=== PATIENT | male | born 1985 | race Caucasian/White ===

== ENCOUNTER → 2018-01-15 09:19 | Outpatient (CLI) | payer OTHER, SELFPAY | PROVIDERS: Visit Provider Physician Assistant | DX: J02.9 Acute pharyngitis, unspecified (principal) | CPT/HCPCS: 87070 ==

== ENCOUNTER → 2018-01-17 13:25 | Outpatient (CLI) | payer OTHER, SELFPAY ==
[2018-01-17 13:46] LABS: Add Manual Diff / Slide Review NO; Basophils Percent Auto 0.5 % (0-2); Eosinophils Percent Auto 0.8 % (2-4); Hematocrit 43.1 % (41-53); Hemoglobin 14.8 g/dL (13.5-17.5); Lymphocytes Percent Auto 9.9 % (25-40); Mean Corpuscular HGB Conc 34.4 % (30-36); Mean Corpuscular Hemoglobin 31.6 PG (26-34); Mean Corpuscular Volume 91.9 fL (80-100); Monocytes Percent Auto 5.4 % (3-14); Neutrophils Absolute Auto 10400 /uL (3000-5900); Neutrophils Percent Auto 83.4 % (50-75); Platelet Count 311 X10^3/uL (150-400); Red Blood Cell Count 4.69 X10^6/uL (4.5-5.9); Red Cell Distribution Width 13.2 % (11.6-14.8); White Blood Cell Count 12.4 X10^3/uL (4.5-11.0)
[2018-01-17 13:52] LABS: Monotest Negative (Negative)
== END ==
PROVIDERS: Visit Provider Physician Assistant
DX: J02.9 Acute pharyngitis, unspecified (principal)
CPT/HCPCS: 36415; 85025; 86318

== ENCOUNTER → 2020-11-19 13:53 | Outpatient (CLI) | payer OTHER, SELFPAY ==
--- NOTE | 2020-11-19 13:56 | DI.RAD.S_ITS ---
PROCEDURE: XR SHOULDER RT MIN 2V INDICATIONS: chronic right shoulder pain TECHNIQUE: 3 views of the shoulder were acquired. COMPARISON: None. FINDINGS: Bones: No fractures or dislocations. No suspicious bony lesions. Visualized ribs appear intact. Soft tissues: No suspicious soft tissue calcifications. IMPRESSION: No acute abnormality. Dictated by: Chavez Haro M.D. on 11/19/2020 at 14:13 Approved by: Chavez Haro M.D. on 11/19/2020 at 14:14
== END ==
PROVIDERS: PCP Family Medicine; Referring Provider Family Medicine; Visit Provider Family Medicine
DX: M25.511 Pain in right shoulder (principal); S43.401A Unspecified sprain of right shoulder joint, initial encounter
CPT/HCPCS: 73030

== ENCOUNTER 2021-10-21 09:28 | Emergency (ER) | payer BC, SELFPAY ==
[2021-10-21] VITALS (11 sets, daily range): BP systolic 123–147; BP diastolic 79–95; PULSE 58–72; RESP 20; TEMP 36.3; O2SAT 96–100; BMI 27.8
--- NOTE | 2021-10-21 10:06 | ED_ITS ---
HPI - URI/Sore Throat General Chief Complaint: Upper Respiratory Symptoms Stated Complaint: COVID+ concerned about oxygen Time Seen by Provider: 10/21/21 10:06 History of Present Illness HPI Narrative: Patient is a 36-year-old healthy male who presents with known COVID and concern for low temperature. He states he was diagnosed with COVID in a home test 4 days ago. has been monitoring oxygen level and temperature very carefully and writing it down. This morning they took his temperature and that was 95 and came into the emergency department. On further questioning he states that he does have some epigastric pain and periumbilical pain he has had that for last 4 days. She does nice any nausea or vomiting. He denies any chest pain no shortness of breath no sore throat. He actually is feeling better for most of his COVID symptoms. He also has left testicular pain. He says that he has had varicocele surgery 12 years ago he feels like his varicocele is back. He denies any testicle swelling or redness. Related Data Allergies Allergy/AdvReac Type Severity Reaction Status Date / Time No Known Drug Allergies Allergy Verified 01/15/18 09:15 Review of Systems Review of Systems Narrative: GENERAL: Denies chills, fatigue, malaise, fever, sweats, travel HEENT: Denies sinus pain, ear pain, sore throat, difficulty swallowing, neck pain RESPIRATORY: Denies dyspnea, cough, wheezing, hemoptysis, sputum. CARDIOVASCULAR: Denies chest pain, palpitations, orthopnea, edema GASTROINTESTINAL: See HPI : See HPI MUSCULOSKELETAL: Denies weakness, joint pain, or bony pain SKIN: No rash, no erythema, no pruritus NEUROLOGIC: Denies weakness, dizziness, headache, numbness, change in speech, confusion PSYCHIATRIC: No concerning psychosocial issues. 12 point review of systems is negative except for those stated above and HPI Patient History Medical History History of skin disorder (~2000) Surgical History Anesthesia Status post scrotal varicocelectomy (~2010) Family History Father Liver disease Mother History of hysterectomy Social History (Reviewed 10/21/21 @ 10:21 by JULIA Garnica Smoking Status: Never smoker Smoking Status: Never smoker Exam Initial Vital Signs Initial Vital Signs: Vital Signs Pulse Oximetry 100 10/21/21 09:38 GENERAL: Well-appearing, well-nourished and in no acute distress. HEENT: Head atraumatic,EOMI, pupils reactive, face symmetric, moist mucous membranes CARDIOVASCULAR: Regular rate and rhythm without murmurs, rubs or gallops. RESPIRATORY: Breath sounds equal bilaterally, no wheezes rales or rhonchi. ABDOMEN: Soft, tender epigastric area minimal right upper quadrant pain mild periumbilical pain no guarding no rebound : Nurse Lizette present, patient feels like there is a vein I do not feel or see in course pain on the left testicle. There is no actual testicular pain and no right testicular pain no redness. There is no hernia. EXTREMITIES: Normal range of motion, no clubbing or edema. Neurovascularly intact NEUROLOGICAL: Alert and oriented x4. SKIN: Warm, dry, no laceration, no petechiae, no rashes or lesions. Course Orders Ordered: ED Orders 10/21/21 10:17 US abdomen limited Stat US scrotum Stat 10/21/21 11:06 CBC Auto Diff [Complete Blood Count AUTO DIFF] Stat CMP [Comprehensive Metabolic Panel] Stat Lipase Stat Discontinued Medications Ketorolac Tromethamine (Ketorolac 30 Mg/Ml Vial) 15 mg IV NOW ONE Stop: 10/21/21 10:18 Last Admin: 10/21/21 11:11 Dose: 15 mg Documented By: CTS Vital Signs Vital signs: Vital Signs - 8 hr 10/21/21 11:00 10/21/21 11:01 10/21/21 11:01 Pulse Rate 72 71 Blood Pressure 136/79 Pulse Oximetry 97 97 Oxygen Delivery Method 10/21/21 11:30 10/21/21 12:00 10/21/21 12:30 Pulse Rate 63 61 58 L Blood Pressure Pulse Oximetry 97 97 98 Oxygen Delivery Method Room Air Room Air Room Air 10/21/21 12:35 10/21/21 12:35 Pulse Rate 68 Blood Pressure 132/89 Pulse Oximetry 99 Oxygen Delivery Method Room Air MDM - URI/Sore Throat Lab Data Result diagrams: 10/21/21 11:06 10/21/21 11:06 Labs: Lab Results 10/21/21 10/21/21 Range/Units 11:06 11:06 WBC 3.9 L (4.5-11.0) X10^3/uL RBC 4.81 (4.5-5.9) X10^6/uL Hgb 15.1 (13.5-17.5) g/dL Hct 43.9 (41-53) % MCV 91.2 (80-100) fL MCH 31.5 (26-34) PG MCHC 34.5 (30-36) % RDW 12.9 (11.6-14.8) % Plt Count 161 (150-400) X10^3/uL Neut % (Auto) 52.7 (50-75) % Lymph % (Auto) 29.2 (25-40) % [place] % (Auto) 14.3 H (3-14) % Eos % (Auto) 3.3 (2-4) % Baso % (Auto) 0.5 (0-2) % Neut # (Auto) 2000 (3121-7502) /uL Lymph # (Auto) 1100 (6965-6329) /uL [place] # (Auto) 600 (0-900) /uL Eos # (Auto) 100 (0-450) /uL Baso # (Auto) 0 (0-100) /uL Sodium 139 (137-145) mmol/L Potassium 4.2 (3.4-5.1) mmol/L Chloride 100 (98-107) mmol/L Carbon Dioxide 29 (22-32) mmol/L BUN 9 (9-20) mg/dL Creatinine 1.07 (0.66-1.25) mg/dL Estimated GFR > 60 (>60) mL/min BUN/Creatinine Ratio 8.4 (6-22) Glucose 92 (70-100) mg/dL Calcium 8.7 (8.4-10.2) mg/dL Total Bilirubin 0.4 (0.2-1.3) mg/dL AST 28 (17-59) IU/L ALT 20 (<50) IU/L Alkaline Phosphatase 59 (38-126) U/L Total Protein 7.7 (6.3-8.2) g/dL Albumin 4.2 (3.5-5.0) g/dL Globulin 3.5 (1.7-4.1) g/dL Albumin/Globulin Ratio 1.2 (1.0-2.8) Lipase 105 (23-300) U/L Imaging Data US - abdomen: Radiologist's Impression: Joshua Copeland MR#: [id number] : 1985 Acct:[id number] Age/Sex: 36 / M Date of Service: 10/21/21 Loc: ED Accession Number: [id number] ?? Procedure: US abdomen limited Ordering Provider: Clarice Shah D.O. PROCEDURE: US ABDOMEN LIMITED ? INDICATIONS:? ruq ? TECHNIQUE:? Real-time focused scanning was performed of the abdomen, with image documentation.? ? COMPARISON:? None. ? FINDINGS:? Liver is normal in size measuring 15.3 cm.? No focal lesions.? No stones are present within the gallbladder.? Wall thickness is normal measuring 1.5 mm.? Common bile duct measures 3.6 mm.? Visualized portions of the pancreas are within normal ? IMPRESSION:? Unremarkable exam. ? ? Dictated by: Lona Odom M.D. on 10/21/2021 at 11:36 ? ? US scrotum: Radiologist's Impression: Signed Patient: Joshua Copeland MR#: [id number] : 1985 Acct:[id number] Age/Sex: 36 / M Date of Service: 10/21/21 Loc: ED Accession Number: [id number] ?? Procedure: US scrotum Ordering Provider: Clarice Shah D.O. PROCEDURE:? US SCROTUM ? INDICATIONS:? left testicle pain ? TECHNIQUE:? Real-time scanning was performed of the scrotum and testicles, with image documentation.? Color and pulse Doppler interrogation was performed of both testicles.? ? COMPARISON:? None. ? FINDINGS:? ? Right:? Testicle is normal in size at 4.3 x 2.0 x 2.4 cm, and homogenous in echotexture.? Epididymis is normal in overall size and morphology.? Small epididymal cyst is present measuring 3 x 3 x 4 mm. No hydrocele.? Mildly prominent vessels are noted.? Overlying scrotal skin is normal in thickness.? ? Left:? Testicle is normal in size at 4.6 x 2.1 x 2.4 cm, and homogeneous in echotexture.? Epididymis is normal in overall size and morphology.? Epididymal cyst is present measuring 3 x 1 x 1 mm. No hydrocele or varicoceles.? Overlying scrotal skin is normal in thickness.? ? Doppler:? Color and pulse Doppler demonstrate normal and symmetric arterial flow in both testicles.? ? IMPRESSION:? Bilateral epididymal cysts. ? Questionable small left varicocele.? ? ? Dictated by: Lona Odom M.D. on 10/21/2021 at 11:38 ? ? MDM Narrative Medical decision making narrative: The patient overall appears well. He does have some epigastric pain some minimal right upper quadrant pain. Initially discussed blood work versus going home may be related to COVID. Initially he would like to go home. However he then reports that he has been having some left testicular pain. He says 12 years ago he had a varicocele and surgery, and now he feels like the same thing his back. He really does not have any testicular pain but feels like the vein is back is mildly tender. He can not get a PCP appointment for the next 40 days. At this time like blood work no will do an ultrasound. Blood work is overall reassuring ultrasounds are both negative. Abdominal pain is likely from COVID. He may small varicocele on the left which he can follow up with primary care provider. Discharge Plan Departure Patient Disposition: Home Clinical Impression: COVID-19, Left varicocele Instructions: COVID-19 Activity Restrictions/Additional Instructions: *You have been diagnosed with COVID-19, left varicocele *What to do: At this time continue supportive care for COVID-19. Mask if you go out follow CDC guidelines Up please see her PCP in regards to her left varicocele *Continue to take medications as directed *Follow up with your primary care provider in 2-3 days or call [phone] *Return to ER if you should have oxygen less than 90%, worsening pain swelling persistent vomiting or or any new, worsening or concerning symptoms Referrals: Hitesh Arceo MD [Primary Care Provider] - Visit Report Forms: Patient Portal/API
--- NOTE | 2021-10-21 10:17 | DI.US.S_ITS ---
PROCEDURE: US SCROTUM INDICATIONS: left testicle pain TECHNIQUE: Real-time scanning was performed of the scrotum and testicles, with image documentation. Color and pulse Doppler interrogation was performed of both testicles. COMPARISON: None. FINDINGS: Right: Testicle is normal in size at 4.3 x 2.0 x 2.4 cm, and homogenous in echotexture. Epididymis is normal in overall size and morphology. Small epididymal cyst is present measuring 3 x 3 x 4 mm. No hydrocele. Mildly prominent vessels are noted. Overlying scrotal skin is normal in thickness. Left: Testicle is normal in size at 4.6 x 2.1 x 2.4 cm, and homogeneous in echotexture. Epididymis is normal in overall size and morphology. Epididymal cyst is present measuring 3 x 1 x 1 mm. No hydrocele or varicoceles. Overlying scrotal skin is normal in thickness. Doppler: Color and pulse Doppler demonstrate normal and symmetric arterial flow in both testicles. IMPRESSION: Bilateral epididymal cysts. Questionable small left varicocele. Dictated by: Lona Odom M.D. on 10/21/2021 at 11:38 Approved by: Lona Odom M.D. on 10/21/2021 at 11:41
--- NOTE | 2021-10-21 10:17 | DI.US.S_ITS ---
PROCEDURE: US ABDOMEN LIMITED INDICATIONS: ruq TECHNIQUE: Real-time focused scanning was performed of the abdomen, with image documentation. COMPARISON: None. FINDINGS: Liver is normal in size measuring 15.3 cm. No focal lesions. No stones are present within the gallbladder. Wall thickness is normal measuring 1.5 mm. Common bile duct measures 3.6 mm. Visualized portions of the pancreas are within normal IMPRESSION: Unremarkable exam. Dictated by: Lona Odom M.D. on 10/21/2021 at 11:36 Approved by: Lona Odom M.D. on 10/21/2021 at 11:38
[2021-10-21] MEDS: KETOROLAC 30 MG/ML VIAL 15 MG IV (11:11)
[2021-10-21 11:17] LABS: Add Manual Diff / Slide Review NO; Basophils Absolute Auto 0 /uL (0-100); Basophils Percent Auto 0.5 % (0-2); Eosinophils Absolute Auto 100 /uL (0-450); Eosinophils Percent Auto 3.3 % (2-4); Hematocrit 43.9 % (41-53); Hemoglobin 15.1 g/dL (13.5-17.5); Lymphocytes Absolute Auto 1100 /uL (1100-4500); Lymphocytes Percent Auto 29.2 % (25-40); Mean Corpuscular HGB Conc 34.5 % (30-36); Mean Corpuscular Hemoglobin 31.5 PG (26-34); Mean Corpuscular Volume 91.2 fL (80-100); Monocytes Absolute Auto 600 /uL (0-900); Monocytes Percent Auto 14.3 % (3-14); Neutrophils Absolute Auto 2000 /uL (1500-7000); Neutrophils Percent Auto 52.7 % (50-75); Platelet Count 161 X10^3/uL (150-400); Red Blood Cell Count 4.81 X10^6/uL (4.5-5.9); Red Cell Distribution Width 12.9 % (11.6-14.8); White Blood Cell Count 3.9 X10^3/uL (4.5-11.0)
[2021-10-21 11:32] LABS: Alanine Aminotransferase 20 IU/L (<50); Albumin 4.2 g/dL (3.5-5.0); Albumin Globulin Ratio 1.2 (1.0-2.8); Alkaline Phosphatase 59 U/L (38-126); Aspartate Aminotransferase 28 IU/L (17-59); BUN Creatinine Ratio 8.4 (6-22); Bilirubin Total 0.4 mg/dL (0.2-1.3); Blood Urea Nitrogen 9 mg/dL (9-20); Calcium 8.7 mg/dL (8.4-10.2); Carbon Dioxide 29 mmol/L (22-32); Chloride 100 mmol/L (98-107); Estimated Glomerular Filt Rate > 60 mL/min (>60); Globulin 3.5 g/dL (1.7-4.1); Glucose 92 mg/dL (70-100); HEMOLYSIS < 15 (0-50); Lipase 105 U/L (23-300); Potassium 4.2 mmol/L (3.4-5.1); Sodium 139 mmol/L (137-145); Total Protein 7.7 g/dL (6.3-8.2)
== END 2021-10-21 12:39 | disposition home or self-care (01) ==
PROVIDERS: Emergency Provider Emergency Medicine; PCP Family Medicine
DX: U07.1 COVID-19 (principal); I86.1 Scrotal varices; R10.13 Epigastric pain
CPT/HCPCS: 36415; 76705; 76870; 80053; 83690; 85025; 93975; 96374; 99284; J1885

== ENCOUNTER 2022-04-24 20:47 | Emergency (ER) | payer BC, SELFPAY ==
[2022-04-24 21:11] VITALS: BP 118/76; PULSE 107; RESP 16; TEMP 37.5; O2SAT 95; BMI 27.1
--- NOTE | 2022-04-24 21:18 | DI.RAD.S_ITS ---
PROCEDURE: XR CHEST 1V INDICATIONS: suspected sepsis TECHNIQUE: One view of the chest was acquired. COMPARISON: None. FINDINGS: Surgical changes and devices: None. Lungs and pleura: Lungs are clear. No pleural effusions or pneumothorax. Mediastinum: Mediastinal contours appear normal. Heart size is normal. Bones and chest wall: No suspicious bony lesions. Overlying soft tissues appear unremarkable. IMPRESSION: 1. No acute cardiopulmonary disease. Dictated by: Tom Yeh M.D. on 04/24/2022 at 22:16 Approved by: Tom Yeh M.D. on 04/24/2022 at 22:16
[2022-04-24] MEDS: SODIUM CHLORIDE 0.9% 1,000 ML 1000 ML IV (21:42)
[2022-04-24] MEDS: ONDANSETRON 4 MG/2 ML INJ IV (21:43)
[2022-04-24 21:44] LABS: Add Manual Diff / Slide Review NO; Basophils Absolute Auto 0 /uL (0-100); Basophils Percent Auto 0.1 % (0-2); Eosinophils Absolute Auto 0 /uL (0-450); Eosinophils Percent Auto 0.2 % (2-4); Hematocrit 45.5 % (41-53); Hemoglobin 15.6 g/dL (13.5-17.5); Lymphocytes Absolute Auto 400 /uL (1100-4500); Lymphocytes Percent Auto 4.1 % (25-40); Mean Corpuscular HGB Conc 34.3 % (30-36); Mean Corpuscular Hemoglobin 30.9 PG (26-34); Mean Corpuscular Volume 90.2 fL (80-100); Monocytes Absolute Auto 500 /uL (0-900); Monocytes Percent Auto 4.6 % (3-14); Neutrophils Absolute Auto 8900 /uL (1500-7000); Platelet Count 217 X10^3/uL (150-400); Red Blood Cell Count 5.05 X10^6/uL (4.5-5.9); White Blood Cell Count 9.8 X10^3/uL (4.5-11.0)
[2022-04-24 21:49] LABS: INR 1.2 (0.9-1.3); Prothrombin Time 13.3 SECONDS (10.1-12.7)
[2022-04-24 21:52] LABS: PTT Partial Thromboplastin Tim 30 SECONDS (26-36)
[2022-04-24 21:55] LABS: Alanine Aminotransferase 41 IU/L (<50); Albumin 4.7 g/dL (3.5-5.0); Albumin Globulin Ratio 1.4 (1.0-2.8); Alkaline Phosphatase 52 U/L (38-126); Aspartate Aminotransferase 35 IU/L (17-59); BUN Creatinine Ratio 12.9 (6-22); Bilirubin Total 0.9 mg/dL (0.2-1.3); Blood Urea Nitrogen 12 mg/dL (9-20); Calcium 8.5 mg/dL (8.4-10.2); Carbon Dioxide 23 mmol/L (22-32); Chloride 99 mmol/L (98-107); Estimated Glomerular Filt Rate > 60 mL/min (>60); Globulin 3.4 g/dL (1.7-4.1); Glucose 130 mg/dL (70-100); HEMOLYSIS < 15 (0-50); Lactate (Lactic Acid) 1.4 mmol/L (0.7-2.1); Lipase 56 U/L (23-300); Potassium 3.5 mmol/L (3.4-5.1); Sodium 135 mmol/L (137-145); Total Protein 8.1 g/dL (6.3-8.2)
[2022-04-24 22:11] LABS: Procalcitonin 0.84 ng/mL (<0.5)
[2022-04-24 22:59] VITALS: BP 117/73; PULSE 93; RESP 16; TEMP 37.3; O2SAT 95
--- NOTE | 2022-04-24 23:11 | ED.NAVMDI ---
HPI - Nausea/Vomiting/Diarrhea General Chief complaint: Nausea/Vomiting/Diarrhea Stated complaint: food poisoning/dehydrated Time Seen by Provider: 04/24/22 20:53 Source: patient Mode of arrival: Ambulatory History of Present Illness HPI Narrative: 36-year-old male nonsmoker with noncontributory medical history presents with a chief complaint of 24 hours of persistent nausea vomiting and diarrhea. He states that he is developed abdominal cramping that seemed to build which rapidly goes away when he has a bowel movement only to return shortly thereafter and follow this pattern. He is developed a moderate headache without obvious provocation or palliation. He denies any fever but has had some chills. He denies any neck pain or extremity numbness, tingling or weakness. He has no blurred vision or trouble with speech. He denies any recent travel, use of antibiotics or exposure to other ill persons. It is unclear if he ate any obviously bad food. He denies runny nose, sore throat or cough. Related Data Previous Rx's Medication Instructions Recorded ondansetron 4 mg disintegrating 4 mg PO TID-QID PRN nausea and 04/25/22 tablet vomiting #10 tabs pantoprazole 40 mg tablet,delayed 40 mg PO DAILY #30 tabs 04/25/22 release (Protonix) Allergies Allergy/AdvReac Type Severity Reaction Status Date / Time No Known Drug Allergies Allergy Verified 01/15/18 09:15 Review of Systems Review of Systems Narrative: GENERAL: See HPI HEENT: Denies sinus pain, ear pain, sore throat, difficulty swallowing, dizziness. RESPIRATORY: Denies dyspnea, cough, wheezing, hemoptysis, sputum. CARDIOVASCULAR: Denies chest pain, palpitations, orthopnea, edema, GASTROINTESTINAL: See HPI : Denies dysuria, frequency, incontinence, hematuria, urinary retention. MUSCULOSKELETAL: denies weakness, joint pain, or bony pain SKIN: Denies rash, skin lesions, or other NEUROLOGIC: See HPI PSYCHIATRIC: No concerning psychosocial issues. 12 point review of systems is negative except for those stated above Patient History Medical History History of skin disorder (~2000) Hyperlipemia Varicocele Surgical History Anesthesia Status post scrotal varicocelectomy (~2010) Family History Father Liver disease Mother History of hysterectomy Social History Smoking Status: Never smoker Smoking Status: Never smoker Substance Use Type: does not use Exam Narrative Exam Narrative: GENERAL: [36] year old patient appears stated age. Well-developed patient, in mild distress. Obviously uncomfortable, holding an emesis bag HEAD: Atraumatic. Normocephalic. EYES: Pupils equal round and reactive. Extraocular motions intact. No scleral icterus. No injection or drainage. ENT: Nose without bleeding, purulent drainage. Throat without erythema, tonsillar hypertrophy or exudate. Airway patent. NECK: Trachea midline. Non tender CARDIOVASCULAR: Tachycardic but regular rhythm without murmurs, gallops, or rubs. RESPIRATORY: Clear to auscultation. Breath sounds equal bilaterally. No wheezes, rales, or rhonchi. GASTROINTESTINAL: Abdomen soft, non-tender, nondistended. Increased bowel sounds EXTREMITIES: No edema or joint tenderness. BACK: Nontender without deformity or crepitance. No flank tenderness. NEURO: AOx3. SKIN: No rash or erythema of visible areas Initial Vital Signs Initial Vital Signs: Vital Signs Temperature 99.5 F 04/24/22 21:11 Pulse Rate 107 H 04/24/22 21:11 Respiratory Rate 16 04/24/22 21:11 Blood Pressure 118/76 04/24/22 21:11 Pulse Oximetry 95 04/24/22 21:11 Oxygen Delivery Method Room Air 04/24/22 21:11 Course Orders Ordered: Discontinued Medications Sodium Chloride (Normal Saline 0.9%) 1,000 mls @ 1,000 mls/hr IV BOLUS ONE Stop: 04/24/22 22:17 Last Infusion: 04/24/22 22:44 Dose: 0 mls/hr Documented By: Admin: 04/24/22 21:42 Dose: 1,000 mls/hr Documented By: GABRIELLE Lactated Ringer's (Lactated Ringers) 1,000 mls @ 1,000 mls/hr IV BOLUS ONE Stop: 04/25/22 00:19 Last Infusion: 04/25/22 00:26 Dose: 0 mls/hr Documented By: Admin: 04/24/22 23:29 Dose: 1,000 mls/hr Documented By: GABRIELLE Ondansetron HCl (Ondansetron 4 Mg Odt) 4 mg SL NOW PRN PRN Reason: Nausea And Vomiting Ondansetron HCl (Ondansetron 4 Mg/2 Ml Inj) 4 mg IV NOW PRN PRN Reason: Nausea And Vomiting Last Admin: 04/24/22 21:43 Dose: 4 mg Documented By: GABRIELLE Ondansetron HCl (Ondansetron 4 Mg Odt Prepack) 1 bottle MISC SEEINSTR ONE Stop: 04/25/22 00:47 Last Admin: 04/25/22 01:01 Dose: 1 bottle Documented By: GABRIELLE Pantoprazole Sodium (Pantoprazole 40 Mg Vial) 40 mg IV NOW ONE Stop: 04/24/22 23:21 Last Admin: 04/24/22 23:30 Dose: 40 mg Documented By: GABRIELLE Vital Signs Vital signs: Vital Signs - 8 hr 04/24/22 21:11 04/24/22 22:59 Temperature 99.5 F 99.1 F Pulse Rate 107 H 93 H Respiratory Rate 16 16 Blood Pressure 118/76 117/73 Pulse Oximetry 95 95 Oxygen Delivery Method Room Air Room Air MDM - Nausea/Vomiting/Diarrhea Lab Data 04/24/22 21:30 04/24/22 21:30 Labs: Lab Results 04/24/22 04/24/22 04/24/22 Range/Units 21:30 21:30 21:30 WBC 9.8 (4.5-11.0) X10^3/uL RBC 5.05 (4.5-5.9) X10^6/uL Hgb 15.6 (13.5-17.5) g/dL Hct 45.5 (41-53) % MCV 90.2 (80-100) fL MCH 30.9 (26-34) PG MCHC 34.3 (30-36) % RDW 13.0 (11.6-14.8) % Plt Count 217 (150-400) X10^3/uL Neut % (Auto) 91.0 H (50-75) % Lymph % (Auto) 4.1 L (25-40) % [place] % (Auto) 4.6 (3-14) % Eos % (Auto) 0.2 L (2-4) % Baso % (Auto) 0.1 (0-2) % Neut # (Auto) 8900 H (8627-2381) /uL Lymph # (Auto) 400 L (3725-3515) /uL [place] # (Auto) 500 (0-900) /uL Eos # (Auto) 0 (0-450) /uL Baso # (Auto) 0 (0-100) /uL PT 13.3 H (10.1-12.7) SECONDS INR 1.2 (0.9-1.3) APTT 30 (26-36) SECONDS Sodium 135 L (137-145) mmol/L Potassium 3.5 (3.4-5.1) mmol/L Chloride 99 (98-107) mmol/L Carbon Dioxide 23 (22-32) mmol/L BUN 12 (9-20) mg/dL Creatinine 0.93 (0.66-1.25) mg/dL Estimated GFR > 60 (>60) mL/min BUN/Creatinine Ratio 12.9 (6-22) Glucose 130 H (70-100) mg/dL Lactate (0.7-2.1) mmol/L Calcium 8.5 (8.4-10.2) mg/dL Total Bilirubin 0.9 (0.2-1.3) mg/dL AST 35 (17-59) IU/L ALT 41 (<50) IU/L Alkaline Phosphatase 52 (38-126) U/L Total Protein 8.1 (6.3-8.2) g/dL Albumin 4.7 (3.5-5.0) g/dL Globulin 3.4 (1.7-4.1) g/dL Albumin/Globulin Ratio 1.4 (1.0-2.8) Lipase 56 (23-300) U/L Procalcitonin 0.84 H (<0.5) ng/mL Stl C. cayetanensis PCR (Not Detect) Stool Rotavirus (PCR) (Not Detect) Stool Adenovirus (PCR) (Not Detect) Stool Astrovirus (PCR) (Not Detect) Stool Cryptosporidium PCR (Not Detect) Stl E.coli Shiga Tox PCR (Not Detect) St Sh/Enteroin Ecoli PCR (Not Detect) Stool E coli O157 PCR (Not Detect) Stl Enterotoxigenic E PCR (Not Detect) Stool EPEC (PCR) (Not Detect) Stl E. histolytica PCR (Not Detect) Stool Giardia Lamblia PCR (Not Detect) Stool Sapovirus (PCR) (Not Detect) Stl P. shigelloides PCR (Not Detect) St Y.enterocolitica PCR (Not Detect) Stool Vibrio (PCR) (Not Detect) Stl Vibrio cholerae PCR (Not Detect) Stl Enteroaggr Ecoli PCR (Not Detect) Stl Norovirus GI/GII PCR (Not Detect) Campylobacter (PCR) (Not Detect) C. difficile Tox (PCR) (Not Detect) SARS-CoV-2 (PCR) (Negative) Salmonella (PCR) (Not Detect) 04/24/22 04/24/22 04/24/22 Range/Units 21:30 21:38 22:56 WBC (4.5-11.0) X10^3/uL RBC (4.5-5.9) X10^6/uL Hgb (13.5-17.5) g/dL Hct (41-53) % MCV (80-100) fL MCH (26-34) PG MCHC (30-36) % RDW (11.6-14.8) % Plt Count (150-400) X10^3/uL Neut % (Auto) (50-75) % Lymph % (Auto) (25-40) % [place] % (Auto) (3-14) % Eos % (Auto) (2-4) % Baso % (Auto) (0-2) % Neut # (Auto) (3380-4535) /uL Lymph # (Auto) (6981-6887) /uL [place] # (Auto) (0-900) /uL Eos # (Auto) (0-450) /uL Baso # (Auto) (0-100) /uL PT (10.1-12.7) SECONDS INR (0.9-1.3) APTT (26-36) SECONDS Sodium (137-145) mmol/L Potassium (3.4-5.1) mmol/L Chloride (98-107) mmol/L Carbon Dioxide (22-32) mmol/L BUN (9-20) mg/dL Creatinine (0.66-1.25) mg/dL Estimated GFR (>60) mL/min BUN/Creatinine Ratio (6-22) Glucose (70-100) mg/dL Lactate 1.4 (0.7-2.1) mmol/L Calcium (8.4-10.2) mg/dL Total Bilirubin (0.2-1.3) mg/dL AST (17-59) IU/L ALT (<50) IU/L Alkaline Phosphatase (38-126) U/L Total Protein (6.3-8.2) g/dL Albumin (3.5-5.0) g/dL Globulin (1.7-4.1) g/dL Albumin/Globulin Ratio (1.0-2.8) Lipase (23-300) U/L Procalcitonin (<0.5) ng/mL Stl C. cayetanensis PCR Not detected (Not Detect) Stool Rotavirus (PCR) Not detected (Not Detect) Stool Adenovirus (PCR) Not detected (Not Detect) Stool Astrovirus (PCR) Not detected (Not Detect) Stool Cryptosporidium PCR Not detected (Not Detect) Stl E.coli Shiga Tox PCR Not detected (Not Detect) St Sh/Enteroin Ecoli PCR Not detected (Not Detect) Stool E coli O157 PCR Not detected (Not Detect) Stl Enterotoxigenic E PCR Not detected (Not Detect) Stool EPEC (PCR) Not detected (Not Detect) Stl E. histolytica PCR Not detected (Not Detect) Stool Giardia Lamblia PCR Not detected (Not Detect) Stool Sapovirus (PCR) Not detected (Not Detect) Stl P. shigelloides PCR Not detected (Not Detect) St Y.enterocolitica PCR Not detected (Not Detect) Stool Vibrio (PCR) Not detected (Not Detect) Stl Vibrio cholerae PCR Not detected (Not Detect) Stl Enteroaggr Ecoli PCR Not detected (Not Detect) Stl Norovirus GI/GII PCR Detected H (Not Detect) Campylobacter (PCR) Not detected (Not Detect) C. difficile Tox (PCR) Not detected (Not Detect) SARS-CoV-2 (PCR) Negative (Negative) Salmonella (PCR) Not detected (Not Detect) Urine Dip Bedside Urine Glucose Negative Bedside Urine Bilirubin - Negative Bedside Urine Ketone - Negative Urine Specific [place] 1.030 Bedside Urine Occult Blood - Negative Bedside Urine pH 6.0 Bedside Urine Protein + 30 Bedside Urine Urobilinogen - Negative Bedside Urine Nitrite - Negative Bedside Urine Leukocytes - Negative Esterase MDM Narrative Medical decision making narrative: [36] year old patient presents with nausea vomiting and diarrhea Multiple etiologies for patient's symptoms considered including, but not limited to: Food-borne illness, norovirus, flu, COVID, C diff versus other Prior Charts reviewed in our EMR Primary Historian: patient Labs reviewed and interpreted by myself: No significant leukocytosis, there is a relative left shift, no signs of anemia. Electrolytes, renal function and LFTs within normal. GI panel notes norovirus Imaging reviewed: Chest x-ray without acute process Patient's symptoms improved over duration of stay with above-stated therapies. Patient able to walk, no longer dizzy, headache has resolved, patient tolerating orals. Findings and discharge diagnosis discussed with patient/family followed by verbalization of understanding Return precautions discussed with patient/family whom verbalize understanding of diagnosis and plan Discharge Plan Departure Patient Disposition: Home Clinical Impression: Enteritis due to Norovirus Instructions: Norovirus Infection Activity Restrictions/Additional Instructions: *You have been diagnosed with [dehydration] * As we discussed your history and physical exam as well as labs and imaging are very reassuring. There is no evidence of any severe diagnoses that would require a specific or immediate intervention. *What to do: *Please continue to take your regular medications as directed. [x ] New medication prescriptions sent to your pharmacy: [[facility] ] *Please follow up with your primary care provider in 2-3 days, call for an appointment. Let them know you were seen in the Emergency Department and that we ask that you be seen in follow up. We will electronically transmit a record of today's note if your PCP is in our system *Please consider a clear liquid diet for the next 24-48 hours and then slowly advance to regular as tolerated. Also, try to avoid alcohol, nicotine, caffeine, spicy, acidic or fatty foods as this may worsen your symptoms *If you do not have a primary care provider please contact the [facility] Resource line at [phone]. They will ask some questions about your medical history and help get you set up with a doctor in the community. *Return to Emergency Department if you should have any new, worsening or concerning symptoms, such as [fever greater than 101 F, shaking chills, worsening pain, persistent vomiting or other bothersome symptoms] Prescriptions: New pantoprazole [Protonix] 40 mg tablet,delayed release (DR/EC) 40 mg PO DAILY Qty: 30 0RF ondansetron 4 mg tablet,disintegrating 4 mg PO TID-QID PRN (Reason: nausea and vomiting) Qty: 10 0RF Referrals: Hitesh Arceo MD [Primary Care Provider] - Stand Alone Forms: Patient Portal/API
[2022-04-24 23:15] LABS: Adenovirus F 40/41 Not Detected (Not Detect); Astrovirus Not Detected (Not Detect); Campylobacter Not Detected (Not Detect); Clostridium difficile toxin AB Not Detected (Not Detect); Cryptosporidium Not Detected (Not Detect); Cyclospora cayetanensis Not Detected (Not Detect); Entamoeba histolytica Not Detected (Not Detect); Enteroaggregative E.coli Not Detected (Not Detect); Enteropathogenic E.coli Not Detected (Not Detect); Enterotoxigenic E.coli It/st Not Detected (Not Detect); Giardia lamblia Not Detected (Not Detect); Norovirus GI/GII Detected (Not Detect); Plesiomonsa shigelloides Not Detected (Not Detect); Rotavirus A Not Detected (Not Detect); Salmonella Not Detected (Not Detect); Sapovirus Not Detected (Not Detect); Shiga-like toxin-prod E.coli Not Detected (Not Detect); Shigella/Enteroinvasive E.coli Not Detected (Not Detect); Vibrio Not Detected (Not Detect); Vibrio cholerae Not Detected (Not Detect); Yersinia enterocolitica Not Detected (Not Detect)
[2022-04-24 23:17] LABS: COVID19 -Nasal RAPID Negative (Negative)
[2022-04-24] MEDS: LACTATED RINGERS 1,000 ML 1000 ML IV (23:29)
[2022-04-24] MEDS: PANTOPRAZOLE 40 MG VIAL IV (23:30)
[2022-04-25] MEDS: ONDANSETRON 4 MG ODT PREPACK 1 BOTTLE MISC (01:01)
[2022-04-25 01:05] VITALS: BP 122/70; PULSE 78; RESP 16; TEMP 36.6; O2SAT 98
== END 2022-04-25 00:58 | disposition home or self-care (01) ==
PROVIDERS: Emergency Provider Emergency Medicine; PCP Family Medicine
DX: A08.39 Other viral enteritis (principal); E86.0 Dehydration; R10.9 Unspecified abdominal pain; Z20.822 Contact with and (suspected) exposure to COVID-19
CPT/HCPCS: 36415; 71045; 80053; 81003; 83605; 83690; 84145; 85025; 85610; 85730; 87040; 87507; 87635; 96361; 96374; 96375; 99284; C9803; C9113; J2405

== ENCOUNTER → 2023-01-16 12:03 | Outpatient (CLI) | payer OTHER, MEDICAID, SELFPAY ==
[2023-01-16 15:22] LABS: Influenza A - CEPHEID Flu A NEGATIVE (NEGATIVE); Influenza B - CEPHEID Flu B NEGATIVE (NEGATIVE); Respiratory Syncytial Virus Negative (Negative)
[2023-01-16 15:32] LABS: COVID-19 CEPHEID 4-PLEX PCR Negative (Negative)
== END ==
PROVIDERS: PCP Family Medicine; Visit Provider Physician Assistant
DX: R05.1 Acute cough (principal)
CPT/HCPCS: 0241U

== ENCOUNTER 2023-01-18 07:47 | Emergency (ER) | payer OTHER, MEDICAID, SELFPAY ==
[2023-01-18 07:50] VITALS: BP 135/81; PULSE 91; RESP 18; TEMP 37.1; O2SAT 95; BMI 27.6
--- NOTE | 2023-01-18 08:03 | ED.GENADULT ---
HPI - General Adult General Chief complaint: Fever Stated complaint: fever/headache T-6/ seen by [facility] T-2 Time Seen by Provider: 01/18/23 07:54 History of Present Illness HPI narrative: Otherwise healthy 37-year-old gentleman on no medications with viral symptoms including fever, cough, chills, myalgias, headaches for the last 6 days. He does not have any meningismus, dysuria, abdominal pain or skin changes. He was seen in urgent Care 48 hours ago with COVID, influenza and RSV tests negative at that time. Comes in today concerned that he feels that he is getting worse and his temperature was 103 this morning on day 6 of symptoms. He notes that his cough has been slightly productive of yellow sputum. He does not report overt chest pain, or orthopnea Related Data Previous Rx's Medication Instructions Recorded azithromycin 250 mg tablet 250 mg PO DAILY 6 days #6 tabs 01/18/23 benzonatate 200 mg capsule 200 mg PO BID-TID PRN cough #14 01/18/23 caps Allergies Allergy/AdvReac Type Severity Reaction Status Date / Time No Known Drug Allergies Allergy Verified 01/18/23 08:07 Review of Systems Review of Systems Narrative: Pertinent positive and negative findings as per HPI Patient History Medical History Hyperlipemia Varicocele History of skin disorder (~2000) Surgical History Anesthesia Status post scrotal varicocelectomy (~2010) Family History Father Liver disease Mother History of hysterectomy Social History Smoking Status: Never smoker Smoking Status: Never smoker Substance Use Type: does not use Exam Initial Vital Signs Initial Vital Signs: Vital Signs Temperature 98.7 F 01/18/23 07:50 Pulse Rate 91 H 01/18/23 07:50 Respiratory Rate 18 01/18/23 07:50 Blood Pressure 135/81 01/18/23 07:50 Pulse Oximetry 95 01/18/23 07:50 Oxygen Delivery Method Room Air 01/18/23 07:50 General: Flushed, appears unwell but in no acute distress. Able to give a complete and coherent history. Well-nourished well-developed HEENT: Dry mucous membranes, normal sclera with reactive pupils, Neck: No JVD, supple Respiratory: Lungs are clear to auscultation, no wheezing no rales no rhonchi. Full and symmetrical air movement Cardiac: Regular rate and rhythm no murmurs no bruits Abdomen: Soft, mild tenderness along the left side including upper and lower quadrants without rebound or guarding. no flank pain Skin: Warm and dry, no rashes Neurologic: Grossly neurologically intact with no obvious asymmetries or abnormalities Extremities: No trauma, well perfused Psych: Cooperative, appropriate insight and affect Course Orders Ordered: ED Orders 01/18/23 08:12 XR chest 1V Stat 01/18/23 08:30 Blood Culture Stat Complete Blood Count AUTO DIFF Stat Comprehensive Metabolic Panel Stat Lactate (Lactic Acid) Stat Lipase Stat Procalcitonin Stat Respiratory Panel (Film Array) Stat 01/18/23 09:40 Urinalysis and Microscopic Stat Discontinued Medications Acetaminophen (Acetaminophen 325 Mg Tablet) 325 mg PO NOW ONE Stop: 01/18/23 09:03 Sodium Chloride (Normal Saline 0.9%) 1,000 mls @ 1,000 mls/hr IV BOLUS ONE Stop: 01/18/23 09:10 Last Infusion: 01/18/23 09:40 Dose: Infused Documented By: Admin: 01/18/23 08:35 Dose: 1,000 mls/hr Documented By: ABHISHEK Ibuprofen (Ibuprofen 400 Mg Tablet) 400 mg PO NOW ONE Stop: 01/18/23 09:03 Vital Signs Vital signs: Vital Signs - 8 hr 01/18/23 07:50 01/18/23 09:22 01/18/23 09:40 Temperature 98.7 F 99.3 F Pulse Rate 91 H 85 86 Respiratory Rate 18 16 Blood Pressure 135/81 Pulse Oximetry 95 97 95 Oxygen Delivery Method Room Air Room Air 01/18/23 10:00 Temperature 98.3 F Pulse Rate 83 Respiratory Rate Blood Pressure Pulse Oximetry 97 Oxygen Delivery Method Room Air Medical Decision Making Lab Data 01/18/23 08:30 01/18/23 08:30 Labs: Lab Results 01/18/23 01/18/23 Range/Units 08:30 09:40 WBC 5.4 (4.5-11.0) X10^3/uL RBC 4.57 (4.5-5.9) X10^6/uL Hgb 14.3 (13.5-17.5) g/dL Hct 41.7 (41-53) % MCV 91.1 (80-100) fL MCH 31.3 (26-34) PG MCHC 34.4 (30-36) % RDW 13.1 (11.6-14.8) % Plt Count 200 (150-400) X10^3/uL Neut % (Auto) 78.4 H (50-75) % Lymph % (Auto) 11.8 L (25-40) % [place] % (Auto) 9.0 (3-14) % Eos % (Auto) 0.4 L (2-4) % Baso % (Auto) 0.4 (0-2) % Neut # (Auto) 4200 (7336-3894) /uL Lymph # (Auto) 600 L (9346-9052) /uL [place] # (Auto) 500 (0-900) /uL Eos # (Auto) 0 (0-450) /uL Baso # (Auto) 0 (0-100) /uL Sodium 133 L (137-145) mmol/L Potassium 3.8 (3.4-5.1) mmol/L Chloride 99 (98-107) mmol/L Carbon Dioxide 26 (22-32) mmol/L BUN 9 (9-20) mg/dL Creatinine 0.78 (0.66-1.25) mg/dL Estimated GFR > 60 (>60) mL/min BUN/Creatinine Ratio 11.5 (6-22) Glucose 113 H (70-100) mg/dL Lactate 0.9 (0.7-2.1) mmol/L Calcium 9.4 (8.4-10.2) mg/dL Total Bilirubin 0.7 (0.2-1.3) mg/dL AST 36 (17-59) IU/L ALT 32 (<50) IU/L Alkaline Phosphatase 64 (38-126) U/L Total Protein 7.8 (6.3-8.2) g/dL Albumin 4.1 (3.5-5.0) g/dL Globulin 3.7 (1.7-4.1) g/dL Albumin/Globulin Ratio 1.1 (1.0-2.8) Lipase 152 (23-300) U/L Procalcitonin 0.20 (<0.5) ng/mL Urine Color Yellow Urine Appearance Clear Urine pH 6.0 (4.5-8.0) Ur Specific [place] <=1.005 (1.000-1.035) Urine Protein Trace H (Negative) Urine Glucose (UA) Negative (Negative) g/dL Urine Ketones Trace H (NEGATIVE) Urine Occult Blood Negative (Negative) Urine Nitrate Negative (Negative) Urine Bilirubin Negative (NEGATIVE) Urine Urobilinogen 0.2 (0.2) E.U./dL Ur Leukocyte Esterase Negative (NEGATIVE) Chlamy pneumoniae PCR Not detected (Not Detect) Adenovirus (PCR) Not detected (Not Detect) B.parapertussis DNA PCR Not detected (Not Detecte) Coronavirus OC43 (PCR) Not detected (Not Detect) Coronavirus HKU1 (PCR) Not detected (Not Detect) Coronavirus 229E (PCR) Not detected (Not Detect) SARS-CoV-2 (PCR) Not detected (Not Detecte) Coronavirus NL63 (PCR) Not detected (Not Detect) Human Metapneumovir PCR Not detected (Not Detect) Influenza Type A (PCR) Not detected (Not Detect) Influenza Type B (PCR) Not detected (Not Detect) M. pneumoniae (PCR) Detected H (Not Detect) Parainfluenza 1 (PCR) Not detected (Not Detect) Parainfluenza 2 (PCR) Not detected (Not Detect) Parainfluenza 3 (PCR) Not detected (Not Detect) Parainfluenza 4 (PCR) Not detected (Not Detect) RSV (PCR) Detected H (Not Detect) Entero/Rhino (PCR) Not detected (Not Detect) MDM Narrative Medical decision making narrative: CC: Viral symptoms for 6 days still with a fever to 103 this morning Data collected from: patient, Medical records reviewed: There is visits for acute illnesses such as norovirus, COVID, pharyngitis over the last 6 years. Differential considered: Viral syndrome, secondary infection including pneumonia, meningitis, diverticulitis, pyelonephritis, cellulitis, sepsis Exam documented above, pertinent findings include: Appears ill but not acutely toxic, flushed, dry mucous membranes pulmonary exam is benign, no evidence of cellulitis abdomen is nonsurgical Lab Test results independently reviewed as above. Pertinent findings: CBC is unremarkable Chemistries are reassuring, no acute abnormalities Lipase is within appropriate limits Procalcitonin is within normal limits Urine suggest mild dehydration but no urinary tract infection Respiratory panel shows both RSV and mycoplasma pneumonia Independently reviewed EKG: Sinus rhythm at a rate of 87. Normal intervals, normal axis, no acute ischemic changes Imaging studies independently reviewed: Chest x-ray shows no acute infiltrates Treatments: 5 days of oral azithromycin is prescribed for the mycoplasma pneumonia, Tessalon Perles for the cough Re-evaluations: Patient feels somewhat better after the fluids, still has a headache, informed of all findings Discussion: 37-year-old gentleman no significant history presents with upper respiratory symptoms getting worse. Respiratory panel returned positive for mycoplasma pneumonia which will be treated with a Z-Barry. He also has respiratory syncytial virus. We reviewed the fact that he likely will have persistent coughing for a number of weeks due to the RSV. Talked about staying hydrated, no signs of bacterial pneumonia or sepsis. No indication for hospitalization at this time. Questions are answered he is safe for discharge Discharge Plan Departure Patient Disposition: Home Clinical Impression: Infection due to Mycoplasma pneumoniae, Respiratory syncytial virus (RSV) Instructions: Atypical Pneumonia, DI for Respiratory Syncytial Virus -- Adults Activity Restrictions/Additional Instructions: Thank you for coming in today You have to different infections. The 1st is a bacterial infection called mycoplasma pneumonia. This typically responds nicely to azithromycin. I have electronically transmitted a prescription for azithromycin and Tessalon Perles to help with the cough to [facility] in [place] You also have respiratory syncytial virus. This takes a number of weeks for the cough to resolve There is no evidence of infiltrates on your chest x-ray, your lab work is reassuring other than the positive tests as above. There was no indication for hospitalization at this time. Using 400 mg of ibuprofen (2 [id number] pills) and 1 Tylenol every 6 hours can be very helpful in controlling pain and fever I hope you feel better shortly. Again, congratulations on the state title. Prescriptions: New azithromycin 250 mg tablet 250 mg PO DAILY 6 Days Qty: 6 0RF Rx Instructions: start on day 2 of therapy benzonatate 200 mg capsule 200 mg PO BID-TID PRN (Reason: cough) Qty: 14 0RF Referrals: Hitesh Arceo MD [Primary Care Provider] - Stand Alone Forms: Patient Portal/API
--- NOTE | 2023-01-18 08:12 | DI.RAD.S_ITS ---
PROCEDURE: XR CHEST 1V INDICATIONS: cough TECHNIQUE: One view of the chest was acquired. COMPARISON: [facility], CR, XR CHEST 1V, 04/24/2022, 21:22. FINDINGS: Surgical changes and devices: None. Lungs and pleura: Lungs are clear. No pleural effusions or pneumothorax. Mediastinum: Mediastinal contours appear normal. Heart size is normal. Bones and chest wall: No suspicious bony lesions. Overlying soft tissues appear unremarkable. IMPRESSION: No acute cardiopulmonary abnormality is identified. Dictated by: Horacio Randall M.D. on 01/18/2023 at 8:51 Approved by: Horacio Randall M.D. on 01/18/2023 at 8:53
[2023-01-18] MEDS: SODIUM CHLORIDE 0.9% 1,000 ML 1000 ML IV (08:35)
[2023-01-18 08:57] LABS: Add Manual Diff / Slide Review NO; Basophils Absolute Auto 0 /uL (0-100); Basophils Percent Auto 0.4 % (0-2); Eosinophils Absolute Auto 0 /uL (0-450); Eosinophils Percent Auto 0.4 % (2-4); Hematocrit 41.7 % (41-53); Hemoglobin 14.3 g/dL (13.5-17.5); Lymphocytes Absolute Auto 600 /uL (1100-4500); Lymphocytes Percent Auto 11.8 % (25-40); Mean Corpuscular HGB Conc 34.4 % (30-36); Mean Corpuscular Hemoglobin 31.3 PG (26-34); Mean Corpuscular Volume 91.1 fL (80-100); Monocytes Absolute Auto 500 /uL (0-900); Neutrophils Absolute Auto 4200 /uL (1500-7000); Neutrophils Percent Auto 78.4 % (50-75); Platelet Count 200 X10^3/uL (150-400); Red Blood Cell Count 4.57 X10^6/uL (4.5-5.9); Red Cell Distribution Width 13.1 % (11.6-14.8); White Blood Cell Count 5.4 X10^3/uL (4.5-11.0)
[2023-01-18 09:11] LABS: Lactate (Lactic Acid) 0.9 mmol/L (0.7-2.1)
[2023-01-18 09:12] LABS: Alanine Aminotransferase 32 IU/L (<50); Albumin 4.1 g/dL (3.5-5.0); Albumin Globulin Ratio 1.1 (1.0-2.8); Alkaline Phosphatase 64 U/L (38-126); Aspartate Aminotransferase 36 IU/L (17-59); BUN Creatinine Ratio 11.5 (6-22); Bilirubin Total 0.7 mg/dL (0.2-1.3); Blood Urea Nitrogen 9 mg/dL (9-20); Calcium 9.4 mg/dL (8.4-10.2); Carbon Dioxide 26 mmol/L (22-32); Chloride 99 mmol/L (98-107); Estimated Glomerular Filt Rate > 60 mL/min (>60); Globulin 3.7 g/dL (1.7-4.1); Glucose 113 mg/dL (70-100); HEMOLYSIS < 15 (0-50); Lipase 152 U/L (23-300); Potassium 3.8 mmol/L (3.4-5.1); Sodium 133 mmol/L (137-145); Total Protein 7.8 g/dL (6.3-8.2)
[2023-01-18 09:22] VITALS: PULSE 85; RESP 16; TEMP 37.4; O2SAT 97
[2023-01-18 09:40] VITALS: PULSE 86; O2SAT 95
[2023-01-18 09:50] LABS: Adenovirus Not Detected (Not Detect); B. parapertussis Not Detected (Not Detecte); Bordetella pertussis Not Detected (Not Detect); Chlamydophila pneumoniae Not Detected (Not Detect); Coronavirus 229E Not Detected (Not Detect); Coronavirus HKU1 Not Detected (Not Detect); Coronavirus NL 63 Not Detected (Not Detect); Coronavirus OC43 Not Detected (Not Detect); Human Metapneumovirus Not Detected (Not Detect); Human Rhinovirus/Enterovirus Not Detected (Not Detect); Influenza A Not Detected (Not Detect); Influenza B Not Detected (Not Detect); Mycoplasma pneumoniae Detected (Not Detect); Parainfluenza Virus 1 Not Detected (Not Detect); Parainfluenza Virus 2 Not Detected (Not Detect); Parainfluenza Virus 3 Not Detected (Not Detect); Parainfluenza Virus 4 Not Detected (Not Detect); Respiratory Syncytial Virus Detected (Not Detect); SARS- CoV-2 Not Detected (Not Detecte)
[2023-01-18 10:00] VITALS: PULSE 83; TEMP 36.8; O2SAT 97
[2023-01-18 10:06] LABS: Appearance Urine UA CLEAR; Bilirubin Urine UA NEGATIVE (NEGATIVE); Color Urine UA YELLOW; Glucose Urine UA NEGATIVE (Negative); Ketones Urine UA TRACE (NEGATIVE); Leukocyte Esterase Urine UA NEGATIVE (NEGATIVE); Nitrite Urine UA NEGATIVE (Negative); Occult Blood Urine UA NEGATIVE (Negative); Protein Urine UA TRACE (Negative); Specific Gravity Urine UA <=1.005 (1.000-1.035); Urobilinogen Urine UA 0.2 E.U./dL (0.2)
[2023-01-18 10:13] LABS: Bacteria Urine None Seen; Culture Indicated Urine Cult Not Indicated; RBC Urine None Seen (0-5/HPF); Squamous Epithelial Cell Urine None Seen (0-5/HPF); WBC Urine None Seen (0-5/HPF)
[2023-01-18 10:30] VITALS: PULSE 82; O2SAT 96
== END 2023-01-18 10:38 | disposition home or self-care (01) ==
PROVIDERS: Emergency Provider Emergency Medicine; PCP Family Medicine
DX: J15.7 Pneumonia due to Mycoplasma pneumoniae (principal); B97.4 Respiratory syncytial virus as the cause of diseases classified elsewhere
CPT/HCPCS: 36415; 71045; 80053; 81001; 83605; 83690; 84145; 85025; 87040; 87633; 93005; 93010; 99284

== ENCOUNTER → 2023-09-28 16:11 | Outpatient (CLI) | payer OTHER, SELFPAY ==
[2023-09-28 17:10] LABS: Add Manual Diff / Slide Review NO; Basophils Absolute Auto 0 /uL (0-100); Basophils Percent Auto 0.4 % (0-2); Eosinophils Absolute Auto 100 /uL (0-450); Eosinophils Percent Auto 2.9 % (2-4); Hematocrit 43.9 % (41-53); Hemoglobin 15.3 g/dL (13.5-17.5); Lymphocytes Absolute Auto 1400 /uL (1100-4500); Lymphocytes Percent Auto 26.8 % (25-40); Mean Corpuscular HGB Conc 34.8 % (30-36); Mean Corpuscular Volume 91.9 fL (80-100); Monocytes Absolute Auto 400 /uL (0-900); Monocytes Percent Auto 8.1 % (3-14); Neutrophils Absolute Auto 3200 /uL (1500-7000); Neutrophils Percent Auto 61.8 % (50-75); Platelet Count 233 X10^3/uL (150-400); Red Blood Cell Count 4.77 X10^6/uL (4.5-5.9); White Blood Cell Count 5.1 X10^3/uL (4.5-11.0)
[2023-09-28 17:29] LABS: Hemoglobin A1C% w Est Avg Glu 5.1 % (4.0-6.0)
[2023-09-28 17:35] LABS: Alanine Aminotransferase 33 IU/L (<50); Albumin 4.7 g/dL (3.5-5.0); Albumin Globulin Ratio 1.6 (1.0-2.8); Alkaline Phosphatase 69 U/L (38-126); Aspartate Aminotransferase 39 IU/L (17-59); BUN Creatinine Ratio 13.4 (6-22); Bilirubin Total 0.5 mg/dL (0.2-1.3); Blood Urea Nitrogen 16 mg/dL (9-20); Calcium 9.6 mg/dL (8.4-10.2); Carbon Dioxide 28 mmol/L (22-32); Chloride 102 mmol/L (98-107); Cholesterol 236 mg/dL (140-199); Estimated Glomerular Filt Rate > 60 mL/min (>60); Glucose 89 mg/dL (70-100); HDL Cholesterol 42 mg/dL (40-60); HEMOLYSIS < 15 (0-50); LDL Cholesterol Calculated 165 mg/dL (<100); Potassium 3.7 mmol/L (3.4-5.1); Sodium 140 mmol/L (137-145); Total Protein 7.7 g/dL (6.3-8.2); Triglycerides 144 mg/dL (35-150)
[2023-09-28 17:38] LABS: Appearance Urine UA CLEAR; Bilirubin Urine UA NEGATIVE (NEGATIVE); Color Urine UA YELLOW; Glucose Urine UA NEGATIVE (Negative); Ketones Urine UA NEGATIVE (NEGATIVE); Leukocyte Esterase Urine UA TRACE (NEGATIVE); Nitrite Urine UA NEGATIVE (Negative); Occult Blood Urine UA NEGATIVE (Negative); Protein Urine UA NEGATIVE (Negative); Specific Gravity Urine UA 1.015 (1.000-1.035); Urobilinogen Urine UA 0.2 E.U./dL (0.2)
[2023-09-28 17:55] LABS: Bacteria Urine Few (2-10); Culture Indicated Urine Specimen Cultured; RBC Urine None Seen (0-5/HPF); Squamous Epithelial Cell Urine 10-30 /HPF (0-5/HPF); Urine Volume 10mL (spun); WBC Urine 0-1/HPF (0-5/HPF)
[2023-09-28 17:57] LABS: TSH w/ Reflex to FT4 0.65 uIU/mL (0.47-4.68)
== END ==
PROVIDERS: PCP Family Medicine; Referring Provider Family Medicine; Visit Provider Family Medicine
DX: E78.5 Hyperlipidemia, unspecified (principal); D72.819 Decreased white blood cell count, unspecified; R73.9 Hyperglycemia, unspecified; R43.1 Parosmia
CPT/HCPCS: 36415; 80053; 80061; 81001; 83036; 84443; 85025; 87086